=== PATIENT | female | born 1990 | race Caucasian/White ===

== ENCOUNTER 2017-10-15 12:29 | Outpatient (CLI) | payer OTHER ==
[~2017-10-15] VITALS: Ht 167.6 cm; Wt 103.7 kg
[~2017-10-15 12:29] MED LIST: FER325 PO; IBUP800T25 PO; PERCOCET PO; PRENAT PO
[2017-10-15 13:07] VITALS: BP 109/55; PULSE 127; RESP 18; Ht 167.6 cm; Wt 103.7 kg
--- NOTE | 2017-10-15 14:47 | RADRPT ---
PROCEDURE: US OB biophysical profile. CLINICAL INDICATION: decreased movements, shortness of breath TECHNIQUE: Multiple sonographic images of the pelvis were obtained. The images were reviewed on a PACS workstation. COMPARISON: No prior studies are available for comparison. FINDINGS: There is a single viable intrauterine gestation. Cardiac activity is present with 134 beats per min renetta. There is a breech presentation. The placenta is fundal. There is no evidence of placental abruption. There is a normal amount of amniotic fluid with an CLAUDIA = 15.1 cm. Biophysical profile: movement 2/2 tone 2/2. breathing 2/2 CLAUDIA 2/2 Total 05/26 RPTAT: AA . IMPRESSION: Normal biophysical profile. . .Jose C Garay MD, Date Time Electronically viewed and signed by .Jose C Garay MD, on 10/15/2017 14:47 .S/
--- NOTE | 2017-10-15 18:01 | CONS ---
Date/Time of Note Date/Time of Note DATE: 10/15/17 TIME: 17:55 Consultation Date/Type/Reason Admit Date/Time . October 15, 2017 OB triage consult This patient is a 27 years old 4 para 2 1 living 2 who had both of her deliveries by section her estimated date of confinement is December 04, 2017 which makes her about 32 weeks and 6 days now her main complaint was shortness of breath and chest pain On physical examination she is somewhat heavy weight lady in no acute distress her body weight was 103 kg 0.7 kg. Review her record her blood type is O+ (B surface antigen nonreactive HIV nonreactive rubella immune Chlamydia and gonorrhea were negative. On general physical examination her blood pressure was 109/55, pulse rate 127, respiration 20 temperature 97.9,, and O2 saturation was 97% in room temperature. . . Constitutional: No chills, No diaphoresis, No disoriented, No febrile, No improved, No no complaints, No other, No poor po, No requiring IVF, No requiring O2 Eyes: No discharge, No no complaints, No other, No pain, No redness, No visual change ENT: No bleeding, No congestion, No discharge, No dysphagia, No no complaints, No other, No pain, No sore throat Respiratory: other (No cough no wheezing chest was actually clear), No cough, No no complaints, No pain, No pleuritic pain, No shortness of breath, No sputum, No wheezing Cardiovascular: other (Normal sinus rhythm no murmur no tachycardia), No chest pain, No edema, No lightheadedness, No no complaints, No orthopenea , No palpitations, No paroxysmal nocturnal dyspnea Gastrointestinal: No blood, No constipation, No decreased appetite, No diarrhea , No flatus, No nausea, No no complaints, No other, No pain, No passing stool, No vomiting Genitourinary: other (Due to lack of any contractions pelvic exam was not performed), No bleeding, No discharge, No dysuria, No flank pain, No hematuria, No no complaints Musculoskeletal: No back pain, No bone/joint pain, No neck pain, No no complaints, No other, No restricted range of motion, No swelling Skin: No bruising, No erythema, No laceration, No no complaints, No other, No pruritis, No rash, No skin lesions Additional Comments . . We performed an ultrasound study : report was a single live intrauterine gestation with cardiac activity 134 bpm in breech presentation placenta was fundal no evidence of placenta previa or abruption amniotic fluid amount was normal with amniotic fluid index of 15.1 cm her biophysical profile report was disposition :with these normal finding patient was given the option of either going to emergency room if there is any respiratory complaint or just go home and do the kick count and to follow-up in her care with her compensation and benefits advisor. She was advised to return to triage in case of active labor, vaginal bleeding or any other obstetrical problem Social History Smoking Status: Never smoker Exam/Review of Systems Vital Signs Vitals Vital Signs Date Time Temp Pulse Resp B/P Pulse Ox O2 Delivery O2 Flow Rate FiO2 10/15/17 13:07 97.9 127 18 109/55 97 Room Air EMANUEL WORTHY MD Oct 15, 2017 18:01
== END 2017-10-15 17:17 | disposition home or self-care (01) ==
LOC: L-D 12:29 → OBT 12:29 → L-D 12:50 → OBT 17:17
PROVIDERS: ATTEND Obstetrics & Gynecology
DX: O26.893 Other specified pregnancy related conditions, third trimester (principal); R06.02 Shortness of breath; R07.9 Chest pain, unspecified; O32.1XX0 Maternal care for breech presentation, not applicable or unspecified; O34.219 Maternal care for unspecified type scar from previous cesarean delivery; Z3A.32 32 weeks gestation of pregnancy
CPT/HCPCS: 76818; Z7500; G0463

== ENCOUNTER 2017-11-27 15:29 | Inpatient (IN) | END 2017-11-30 18:58 | disposition home or self-care (01) | DRG 766 ==